=== PATIENT | male | born 1970 | race Caucasian/White ===

== ENCOUNTER 2017-02-07 19:53 | Emergency (ER) | payer BC ==
[2017-02-07 20:15] VITALS: BP 132/77
--- NOTE | 2017-02-07 20:50 | UC ---
Skin Complaint HPI - HPI Summary HPI Summary: The patient comes in today for: 1. Perineal soreness: Onset: 3 days ago. Palliative/provocative: Pressure made it worse. Quality: Soreness. Region: Between the scrotum and anus. Severity: 4/10 Time: Constant. Associated symptoms: Fevers: No temperature taken. Discharge: present. Previous disease: None "like this." He had a "saddle soreness" in the past, but was not to this degree. * - History of Current Complaint Chief Complaint: [facility] Time Seen by Provider: 02/07/17 20:40 Stated Complaint: PERSONAL Hx Obtained From: Patient - Allergy/Home Medications Allergies/Adverse Reactions: Allergies Allergy/AdvReac Type Severity Reaction Status Date / Time No Known Allergies Allergy Verified 02/07/17 20:15 Review of Systems Constitutional: Negative Skin: Rash Eyes: Negative ENT: Negative Respiratory: Negative Cardiovascular: Negative Gastrointestinal: Negative Genitourinary: Negative All Other Systems Reviewed And Are Negative: Yes PMH/Surg Hx/FS Hx/Imm Hx Previously Healthy: Yes Endocrine History Of: Denies: Diabetes, Thyroid Disease, Hyperthyroidism, Hypothyroidism, Dyslipidemia Cardiovascular History Of: Denies: Cardiac Disorders, Hypertension, Pacemaker/ICD, Myocardial Infarction , Congestive Heart Failure, Atrial Fibrillation, Deep Vein Thrombosis, Bleeding Disorders Respiratory History Of: Denies: COPD, Asthma, Bronchitis, Pneumonia, Pulmonary Embolism GI/ History Of: Denies: Gastroesophageal Reflux, Ulcer, Gastrointestinal Bleed, Gall Bladder Disease, Kidney Stones, Diverticulitis, Renal Disease, Urosepsis Neurological History Of: Denies: TIA, CVA, Dementia, Seizures, Migraine Psychological History Of: Denies: Anxiety, Depression, Bipolar Disorder, Schizophrenia, Post Traumatic Stress Disorder Cancer History Of: Denies: Lung Cancer, Colorectal Cancer, Breast Cancer, Prostate Cancer, Cervical Cancer Other History Of: Negative For: HIV, Hepatitis B, Hepatitis C, Anticoagulant Therapy - Surgical History Surgical History: None - Family History Known Family History: Positive: Hypertension Negative: Cardiac Disease - Social History Occupation: Employed Full-time Alcohol Use: Weekly Alcohol Amount: q 3 weeks 2 drinks Substance Use Type: None Smoking Status (MU): Never Smoked Tobacco - Immunization History Most Recent Tetanus Shot: Unknown Physical Exam Triage Information Reviewed: Yes Appearance: Well-Appearing, No Pain Distress, Well-Nourished Vital Signs: Initial Vital Signs Temp 99.6 F 04/26/17 20:04 Pulse 107 02/07/17 20:04 Resp 24 02/07/17 20:04 BP 132/77 02/07/17 20:04 Vital Signs Reviewed: Yes Eyes: Positive: Conjunctiva Clear. Negative: Discharge ENT: Positive: Hearing grossly normal. Negative: Pharyngeal erythema, Nasal congestion, Nasal drainage, TM bulging, TM dull, TM red, Tonsillar swelling, Tonsillar exudate Dental: Negative: Gross Decay/Caries @, Dental Fracture @ Neck: Positive: Supple, Nontender, No Lymphadenopathy. Negative: Nuchal Rigidity Respiratory: Positive: Lungs clear, No respiratory distress, No accessory muscle use. Negative: Crackles, Wheezing Cardiovascular: Positive: RRR, No Murmur Abdomen Description: Positive: Nontender, No Organomegaly, Soft. Negative: Distended, Guarding Musculoskeletal: Positive: Strength Intact, ROM Intact, No Edema Neurological: Positive: Alert, Muscle Tone Normal Psychological: Positive: Age Appropriate Behavior, Consolable Skin: Positive: rashes, Other - Left buttocks, 2" to the left of the anal opening (patient on his stomach) erythematous area with devitalized, cyanotic area with pus draining from the area. Culture taken. Course/Dx - Course Course Of Treatment: 2% lidocaine with epi instilled into the area. "X" cut made and pus compressed out. Drain inserted. Dressing applied. - Diagnoses Provider Diagnoses: Perianal abscess. (left) Discharge - Discharge Plan Condition: Stable Disposition: HOME Patient Education Materials: Abscess (ED) Referrals: No Primary Care Phys,NOPCP [Primary Care Provider] - Brenden Sky MD [Medical Doctor] - As Soon As Possible (Please call Dr. Sky's office for a follow-up appointment as soon as possible. If you get worse from now and then, please go to the ER.) Additional Instructions: Please sit your bottom (and affected area) in hot water (sitz bath) for 20 minutes several times a day. Gently clean the area daily and inspect for redness, drainage, swelling and pain. Instead of the sitz bath, you may get a handheld spray shower head to have hot water (as hot as you can stand) spray in the area for 20 minutes several times a day. Any fever or worsening, please to go the ER.
[2017-02-07] MEDS ORDERED: Lidocaine 2% W/EPI 1:100,000* 20 ML MDV ONE (21:20)
[2017-02-07] MEDS ORDERED: Sulfamethox/Trimethoprim DS 800/160* TAB PO ONE (21:53)
[2017-02-07] MEDS ORDERED: Cephalexin CAP* 500 MG PO ONE (21:54)
== END 2017-02-07 22:04 | disposition home or self-care (01) ==
LOC: UCCORT 19:53
DX: K61.0 Anal abscess (principal)
CPT/HCPCS: 10060; 46050; 87070; 87077; 87186; 87205; 87640; 87641; 99202; A9270-GY; G0463